=== PATIENT | male | born 1985 | race American Indian/Alaskan Native ===

== ENCOUNTER 2020-02-14 20:01 | Emergency (ER) | payer OTHER ==
[2020-02-14] MEDS ORDERED: HYDROcodone/ACETAMINOPHEN 7.5-325MG TAB PO ONE (20:41)
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
--- NOTE | 2020-02-14 21:09 | XRay Report ---
CHEST 2 VIEWS INDICATION / CLINICAL INFORMATION: trauma, right chest pain. COMPARISON: None available. FINDINGS: SUPPORT DEVICES: None. HEART / MEDIASTINUM: No significant abnormality. LUNGS / PLEURA: No significant pulmonary or pleural abnormality. No pneumothorax. ADDITIONAL FINDINGS: No significant additional findings. IMPRESSION: 1. No acute findings. Signer Name: Bill Light MD Signed: 02/14/2020 9:04 PM Workstation Name: [id number]
[2020-02-14 21:54] VITALS: BP 128/79
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
--- NOTE | 2020-02-14 21:56 | Cat Scan Report ---
CT chest wo con INDICATION: fall, right chest pain. TECHNIQUE: All CT scans at this location are performed using CT dose reduction for ALARA by means of automated e xposure control. COMPARISON: None available. FINDINGS: Mediastinum, shelly and axillae are negative. No pneumothorax, pleural fluid or acute pulmonary disease . No rib fracture or other skeletal abnormality. IMPRESSION: 1. Negative study. Signer Name: Devonte Vyas MD Signed: 02/14/2020 9:51 PM Workstation Name: [id number]
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
== END 2020-02-14 22:38 | disposition home or self-care (01) ==
LOC: ED 20:01
DX: S20.219A Contusion of unspecified front wall of thorax, initial encounter (principal); S40.012A Contusion of left shoulder, initial encounter; J45.909 Unspecified asthma, uncomplicated; F17.200 Nicotine dependence, unspecified, uncomplicated; Z98.890 Other specified postprocedural states; Z79.899 Other long term (current) drug therapy; Z91.013 Allergy to seafood; X58.XXXA Exposure to other specified factors, initial encounter; Y93.89 Activity, other specified; Y92.89 Other specified places as the place of occurrence of the external cause; Y99.8 Other external cause status
CPT/HCPCS: 70450; 71046; 71250; 72125

== ENCOUNTER 2021-03-09 01:07 | Emergency (ER) | payer SELFPAY ==
[2021-03-09 01:38] VITALS: BP 146/71
[2021-03-09] MEDS ORDERED: HYDROcodone/ACETAMINOPHEN 5-325 MG TAB PO STA (02:46)
--- NOTE | 2021-03-09 03:10 | Emergency Department Report ---
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 He reports dull throbbing pain to the left back and radiates up his back worse with palpation and certain range of motion. He reports no loss of bowel or bladder, no saddle paresthesia, no dysuria no hematuria no fever, chills, sweats no diarrhea no constipation. Reports no rashes. MD Complaint: back pain, back injury Place: work Radiation: buttocks, left leg Quality: sharp, aching Consistency: constant Worsens With: movement Associated Symptoms: denies: diaphoresis, incontinence, fever/chills, constipation, headaches, rash, shortness of breath - Related Data Previous Rx's Medication Instructions Recorded Last Taken Type Naproxen [Naprosyn] 500 mg PO BID #20 tablet 02/14/20 Unknown Rx methOCARBAMOL [Robaxin TAB] 500 mg PO Q8HR PRN #20 tablet 02/14/20 Unknown Rx traMADoL [Ultram] 50 mg PO Q6HR PRN #7 tablet 02/14/20 Unknown Rx Ketorolac [Toradol] 10 mg PO Q6H PRN #15 tablet 03/09/21 Unknown Rx methOCARBAMOL [Robaxin TAB] 750 mg PO Q8H PRN #14 tablet 03/09/21 Unknown Rx Allergies Allergy/AdvReac Type Severity Reaction Status Date / Time shellfish derived Allergy Rash Verified 03/09/21 01:13 ED Review of Systems ROS: Stated complaint: LOWER BACK PAIN Other details as noted in HPI Comment: All other systems reviewed and negative ED Past Medical Hx - Past Medical History Hx Asthma: Yes - Surgical History Additional Surgical History: hernia repair - Social History Smoking Status: Never Smoker Substance Use Type: Alcohol - Medications Home Medications: Home Medications Medication Instructions Recorded Confirmed Last Taken Type Naproxen [Naprosyn] 500 mg PO BID #20 tablet 02/14/20 Unknown Rx methOCARBAMOL [Robaxin TAB] 500 mg PO Q8HR PRN #20 tablet 02/14/20 Unknown Rx traMADoL [Ultram] 50 mg PO Q6HR PRN #7 tablet 02/14/20 Unknown Rx Ketorolac [Toradol] 10 mg PO Q6H PRN #15 tablet 03/09/21 Unknown Rx methOCARBAMOL [Robaxin TAB] 750 mg PO Q8H PRN #14 tablet 03/09/21 Unknown Rx ED Physical Exam - General Limitations: No Limitations General appearance: alert, in no apparent distress - Head Head exam: Present: atraumatic, normocephalic - Eye Eye exam: Present: normal appearance, PERRL, EOMI - ENT ENT exam: Present: normal exam, mucous membranes moist - Neck Neck exam: Present: normal inspection, full ROM - Respiratory Respiratory exam: Present: normal lung sounds bilaterally. Absent: respiratory distress - Cardiovascular Cardiovascular Exam: Present: regular rate, normal rhythm. Absent: systolic murmur, diastolic murmur, rubs, gallop - GI/Abdominal GI/Abdominal exam: Present: soft, normal bowel sounds - Rectal Rectal exam: Present: deferred - Extremities Exam Extremities exam: Present: normal inspection - Back Exam Back exam: Present: normal inspection, tenderness, paraspinal tenderness, vertebral tenderness, other (Negative straight leg raise and Deanna's test. Tenderness with palpation to the sacroiliac joint. Pain with adduction/internal rotation of the hip.). Absent: CVA tenderness (L) - Neurological Exam Neurological exam: Present: alert, oriented X3, CN II-XII intact, normal gait - Psychiatric Psychiatric exam: Present: normal affect, normal mood - Skin Skin exam: Present: warm, dry, intact, normal color. Absent: rash ED Course Vital Signs 03/09/21 01:14 Temperature 98.6 F Pulse Rate 97 H Respiratory 18 Rate Blood Pressure 146/71 O2 Sat by Pulse 96 Oximetry ED Medical Decision Making - Medical Decision Making Pt presents the emergency department complaining of back pain most consistent with lower back Pain Most Consistent with Strain/Contusion. Differential Diagnosis Includes Lumbar Go Versus Musculoskeletal Spasm, Strain Versus Sciatica. No Back Pain Red Flags on History or Physical. Presentation Not Consistent with Malignancy, Fracture, Cauda Equina, Abdominal Aortic Aneurysm, Viscus Perforation, Pulmonary Embolism, Renal Colic, Pyelonephritis. Patient reports no B symptoms, trauma trauma, incontinence, saddle anesthesia, distal weakness, urinary symptoms and is a febrile. Critical care attestation.: If time is entered above; I have spent that time in minutes in the direct care of this critically ill patient, excluding procedure time. ED Disposition Clinical Impression: Lower back pain Disposition: - TO HOME OR SELFCARE Is pt being admited?: No Does the pt Need Aspirin: No Condition: Stable Instructions: Acute Back Pain, Adult Prescriptions: methOCARBAMOL [Robaxin TAB] 750 mg PO Q8H PRN #14 tablet PRN Reason: Pain, Moderate (4-6) Ketorolac [Toradol] 10 mg PO Q6H PRN #15 tablet PRN Reason: Pain Referrals: PRIMARY CARE,MD [Primary Care Provider] - 3-5 Days
== END 2021-03-09 03:13 | disposition home or self-care (01) ==
LOC: ED 01:07
DX: M54.5 Low back pain (principal); J45.909 Unspecified asthma, uncomplicated; Z98.890 Other specified postprocedural states; Z79.899 Other long term (current) drug therapy; Z91.013 Allergy to seafood
CPT/HCPCS: 99282